=== PATIENT | male | born 1945 | race Caucasian/White ===

== ENCOUNTER 2017-05-06 20:15 | Observation (INO) | payer MEDICARE, OTHER ==
[2017-05-06] MEDS ORDERED: LORazepam 2 MG/ML MDV IVPUSH ONE (20:30)
[2017-05-06] MEDS ORDERED: Sodium Chloride 0.9% 1,000 ML IV ONE (20:30)
[2017-05-06] MEDS ORDERED: Thiamine 100 MG in Sodium Chloride 0.9% 100 ML IV ONE (20:30)
[2017-05-06] MEDS ORDERED: Folic Acid 1 MG Tab PO ONE (20:30)
--- NOTE | 2017-05-06 20:34 | EDM.PDOC ---
ED HPI GENERAL MEDICAL PROBLEM - General Chief Complaint: Drug or Alcohol Abuse Time Seen by Provider: 05/06/17 20:15 Source of Information: Reports: Patient, EMS History Limitations: Reports: Altered Mental Status - History of Present Illness INITIAL COMMENTS - FREE TEXT/NARRATIVE: 71 y.o.w.m., chronic ETOH abuse, stopped drinking on Friday night. He came to the ed by EMS because he was "shaking and not able to walk" pt is a poor historian and no family was present. No F/C BP 139/64 Pulse 93 temp 36.4 RR 16 Pulse ox 98% Labs: WBC 6.6 HGB 10.0 HCT 28.9 ETOH 0.03 Na 146 K 3.1 Onset Date: 05/05/17 Onset Time: 18:00 Duration: Day(s):, Intermittent Location: Reports: Generalized Quality: Reports: Other (shaking) Severity: Moderate Context: Reports: Other (last beek friday) - Related Data Allergies Allergy/AdvReac Type Severity Reaction Status Date / Time No Known Allergies Allergy Verified 05/06/17 20:28 Home Meds: Home Meds LORazepam [Ativan] 0.5 mg PO Q6H #40 tablet 05/08/17 [Rx] Multivitamins [Tab-A-Ean] 1 tab PO BEDTIME #30 tablet 05/08/17 [Rx] Thiamine [Vitamin B-1] 100 mg PO BEDTIME #30 tab 05/08/17 [Rx] ED ROS GENERAL - Review of Systems Review Of Systems: Unable To Obtain - Physical Exam Exam: See Below Exam Limited By: Altered Mental Status General Appearance: Alert, Anxious, Thin Eye Exam: Bilateral Eye: Normal Inspection Ears: Normal External Exam Nose: Normal Inspection Throat/Mouth: Normal Inspection, Other (poor dentition) Head Exam: Atraumatic, Normocephalic Neck: Normal Inspection, Supple, Non-Tender, Full Range of Motion Respiratory/Chest: No Respiratory Distress, Lungs Clear, Normal Breath Sounds Cardiovascular: Normal Peripheral Pulses, Regular Rate, Rhythm, No Edema GI/Abdominal: Normal Bowel Sounds, Soft, Non-Tender, No Organomegaly (Male) Exam: Deferred Rectal (Males) Exam: Deferred Neuro Exam (Abbreviated): Alert, CN II-XII Intact, Slow to Respond, Abnormal Gait (weak) Back Exam: Normal Inspection, Full Range of Motion Extremities: Normal Inspection, Normal Range of Motion, Non-Tender Psychiatric: Anxious Skin Exam: Warm, Dry, Intact, Normal Color, No Rash Course - Vital Signs Text/Narrative:: 71 y.o.w.m., chronic ETOH abuse, stopped drinking on Friday night. He came to the ed by EMS because he was "shaking and not able to walk" pt is a poor historian and no family was present. No F/C BP 139/64 Pulse 93 temp 36.4 RR 16 Pulse ox 98% PE: Thin/cachectic, weak w M with asterix tremor Labs: Na was 146 and K was 3.1 WBC 6.6 HGB 10.0 HCT 28.9 ETOH 0.03 Na 146 K 3.1 Cr. 1.4 Impression: ETOH withdrawl with tremor, Hypernatremia, hypokalemia, hypocalcemia Tx: NS, Thiamin, MVT, Folic acid, Ativan Reexam: Improved Plan: Admit for hypernatremia, dehydration and ETOH withdrawal Last Recorded V/S: Last Vital Signs Temp 36.8 C 05/08/17 00:00 Pulse 88 05/08/17 08:00 Resp 20 05/08/17 08:00 BP 161/88 H 05/08/17 08:00 Pulse Ox 97 05/08/17 08:00 - Orders/Labs/Meds Orders: Medication Orders Docusate Sodium (Colace) 100 mg PO BID PRN PRN Reason: Constipation Sodium Chloride (Normal Saline) 1,000 mls @ 125 mls/hr IV ASDIRECTED [facility] Last Admin: 05/08/17 06:49 Dose: 125 mls/hr Infusion: 05/08/17 06:45 Dose: 125 mls/hr Admin: 05/07/17 22:45 Dose: 125 mls/hr Infusion: 05/07/17 22:16 Dose: 125 mls/hr Admin: 05/07/17 14:16 Dose: 125 mls/hr Infusion: 05/07/17 14:05 Dose: 125 mls/hr Admin: 05/07/17 06:05 Dose: 125 mls/hr Infusion: 05/07/17 06:05 Dose: 125 mls/hr Admin: 05/06/17 22:36 Dose: 125 mls/hr Lorazepam (Ativan) 1 mg IV Q6H PRN PRN Reason: Agitation Multivitamins/Minerals/Vitamin C (Tab-A-Ean) 1 tab PO BEDTIME [facility] Last Admin: 05/07/17 20:31 Dose: 1 tab Admin: 05/06/17 20:57 Dose: 1 tab Ondansetron HCl (Zofran) 4 mg IV Q4H PRN PRN Reason: Nausea/Vomiting Potassium Chloride (Klor-Con M20) 20 meq PO BID [facility] Last Admin: 05/08/17 09:20 Dose: 20 meq Admin: 05/07/17 20:30 Dose: 20 meq Labs: Laboratory Tests 05/06/17 05/06/17 05/06/17 Range/Units 20:50 20:50 20:50 WBC 6.1 (4.5-12.0) X10-3/uL RBC 2.71 L (4.30-5.75) x10(6)uL Hgb 10.0 L (11.5-15.5) g/dL Hct 28.8 L (30.0-51.3) % MCV 106.1 H (80-96) fL MCH 36.9 H (27.7-33.6) pg MCHC 34.8 (32.2-35.4) g/dL RDW 16.3 H (11.5-15.5) % Plt Count 60 L (125-369) X10(3)uL MPV 10.6 H (7.4-10.4) fL Add Manual Diff Yes Neutrophils % (Manual) 60 (46-82) % Lymphocytes % (Manual) 31 (13-37) % Monocytes % (Manual) 9 (4-12) % Sodium 146 H (135-145) mmol/L Potassium 3.1 L (3.5-5.3) mmol/L Chloride 107 (100-110) mmol/L Carbon Dioxide 23 (21-32) mmol/L BUN 20 H (7-18) mg/dL Creatinine 1.4 H (0.70-1.30) mg/dL Est Cr Clr Drug Dosing TNP Estimated GFR (MDRD) 50 L (>60) BUN/Creatinine Ratio 14.3 (9-20) Glucose 123 H (80-116) mg/dL Calcium 8.3 L (8.6-10.2) mg/dL Ethyl Alcohol < 0.03 H (<0.03) % Meds: Medications Generic Name Dose Route Start Last Admin Trade Name Sera PRN Reason Stop Dose Admin Docusate Sodium 100 mg 05/06/17 21:37 Colace PO BID PRN Constipation Sodium Chloride 1,000 mls @ 125 mls/hr 05/06/17 21:45 05/08/17 06:49 Normal Saline IV 125 mls/hr ASDIRECTED LIN Administration Lorazepam 1 mg 05/06/17 21:37 Ativan IV Q6H PRN Agitation Multivitamins/Minerals/Vitamin C 1 tab 05/06/17 21:00 05/07/17 20:31 Tab-A-Ean PO 1 tab BEDTIME LIN Administration Ondansetron HCl 4 mg 05/06/17 21:37 Zofran IV Q4H PRN Nausea/Vomiting Potassium Chloride 20 meq 05/07/17 21:00 05/08/17 09:20 Klor-Con M20 PO 20 meq BID LIN Administration Discontinued Medications Generic Name Dose Route Start Last Admin Trade Name Sera PRN Reason Stop Dose Admin Folic Acid 1 mg 05/06/17 20:30 05/06/17 20:57 Folic Acid PO 05/06/17 20:31 1 mg ONETIME ONE Administration Sodium Chloride 1,000 mls @ 999 mls/hr 05/06/17 20:30 05/06/17 20:45 Normal Saline IV 05/06/17 21:30 999 mls/hr .BOLUS ONE Administration Thiamine HCl 100 mg/ Sodium 101 mls @ 202 mls/hr 05/06/17 20:30 05/06/17 20: 57 Chloride IV 05/06/17 20:31 202 mls/hr ONETIME ONE Administration Levofloxacin/Dextrose Confirm 05/06/17 21:11 05/06/17 21:21 Levaquin In D5w 750 Mg/150 Ml Administered 05/06/17 21:12 Not Given Dose 150 mls @ as directed IV .STK-MED ONE Lorazepam 1 mg 05/06/17 20:30 05/06/17 20:56 Ativan IVPUSH 05/06/17 20:31 1 mg ONETIME ONE Administration Departure - Departure Time of Disposition: 17:00 Disposition: Home, Self-Care 01 Condition: Fair Clinical Impression: ETOH abuse - Discharge Information
[2017-05-06] MEDS: Multivitamin Tab PO SCH (20:57)
[2017-05-06] MEDS ORDERED: Levofloxacin/Dextrose 5%-Water 150 ML IV ONE (21:11)
[2017-05-06] MEDS ORDERED: LORazepam 2 MG/ML MDV IV PRN (21:37)
[2017-05-06] MEDS ORDERED: Ondansetron 4 MG/2 ML SDV IV PRN (21:37)
[2017-05-06] MEDS ORDERED: Docusate Sodium 100 MG Cap PO PRN (21:37)
[2017-05-06] MEDS: Sodium Chloride 0.9% 1,000 ML IV SCH (22:36)
[2017-05-07] MEDS: Sodium Chloride 0.9% 1,000 ML IV SCH ×3 (06:05→22:45)
--- NOTE | 2017-05-07 12:32 | PCM.HP ---
H&P History of Present Illness - General Date of Service: 05/07/17 Source of Information: Patient History Limitations: Reports: Language Barrier - History of Present Illness Initial Comments - Free Text/Narative: This is a 71-year-old male patient came to the ER last night because he stopped drinking 2 days ago. He was tremulous and admitted for alcohol abuse and withdrawal. This morning the patient does not speak very loud and I'm not able to get the best history. He says he drinks during hockey games and football games. He states he doesn't drink every day. He's never been a treatment. I was not able to assess the cage question. He says been shaking but he has no other concerns. Says he moved down here in [place] from [facility]. ER record shows chronic alcohol abuse. - Related Data Allergies/Adverse Reactions: Allergies Allergy/AdvReac Type Severity Reaction Status Date / Time No Known Allergies Allergy Verified 05/06/17 20:28 Home Medications: Home Meds NK [No Known Home Meds] 05/06/17 [History] Past Medical History HEENT History: Reports: Impaired Vision, Other (See Below) Other HEENT History: glasses Gastrointestinal History: Reports: Jaundice, Other (See Below) Other Gastrointestinal History: pt denies, skin and sclera yellow Psychiatric History: Reports: Addiction Other Dermatologic History: jaundiced, numerous bruises and scrapes on arms legs and R upper mid back - Infectious Disease History Infectious Disease History: Reports: Chicken Pox, Measles, Mumps - Past Surgical History Musculoskeletal Surgical History: Reports: Shoulder Surgery Social & Family History - Family History Cardiac: Reports: Bypass Other Cardiac Family History: father Oncologic: Reports: Breast Other Oncologic Family History: mother and grandmother - Tobacco Use Smoking Status *Q: Never Smoker Second Hand Smoke Exposure: Yes - Caffeine Use Caffeine Use: Reports: Coffee Other Caffeine Use: 2 cups a day - Alcohol Use Days Per Week of Alcohol Use: 5 Number of Drinks Per Day: 3 Total Drinks Per Week: 15 Date of Last Drink: 05/04/17 Time of Last Drink: 18:00 - Recreational Drug Use Recreational Drug Use: No H&P Review of Systems - Review of Systems: Review Of Systems: See Below General: Reports: No Symptoms HEENT: Reports: No Symptoms Pulmonary: Reports: No Symptoms Cardiovascular: Reports: No Symptoms Gastrointestinal: Reports: No Symptoms Musculoskeletal: Reports: No Symptoms Skin: Reports: No Symptoms Psychiatric: Reports: No Symptoms Neurological: Reports: Trouble Speaking, Other (Tremors) Hematologic/Lymphatic: Reports: No Symptoms Immunologic: Reports: No Symptoms Exam - Exam Exam: See Below - Vital Signs Vital Signs: Last Vital Signs Temp 98.1 F 05/07/17 02:00 Pulse 79 05/07/17 11:17 Resp 18 05/07/17 11:17 BP 145/63 H 05/07/17 11:17 Pulse Ox 97 05/07/17 11:17 Weight: 138 lb - Exam General: Alert, Oriented, Cooperative, Lethargic HEENT: Hearing Intact, Mucosa Moist & [place], TMs Clear Neck: Supple, Trachea Midline. No: Lymphadenopathy Lungs: Clear to Auscultation, Normal Respiratory Effort Cardiovascular: Regular Rate, Regular Rhythm, Normal S1, Normal S2. No: Systolic Murmur, Diastolic Murmur GI/Abdominal Exam: Normal Bowel Sounds, Soft, Non-Tender, No Organomegaly, No Distention, No Mass Back Exam: Normal Inspection Extremities: Normal Range of Motion, Non-Tender, No Pedal Edema, Other (Tremors) Neurological: Normal Tone. No: Normal Speech Neuro Extensive - Mental Status: Alert, Oriented x3. No: Normal Cognition - Patient Data Lab Results Last 24 hrs: Laboratory Results - last 24 hr 05/07/17 05/07/17 Range/Units 00:05 00:05 Urine Color Yellow (YELLOW) Urine Appearance Clear (CLEAR) Urine pH 6.0 (5.0-6.5) Ur Specific [place] 1.015 (1.010-1.025) Urine Protein Negative (NEGATIVE) mg/dL Urine Glucose (UA) Normal (NEGATIVE) mg/dL Urine Ketones 15 H (NEGATIVE) mg/dL Urine Occult Blood Moderate H (NEGATIVE) Urine Nitrite Negative (NEGATIVE) Urine Bilirubin Moderate H (NEGATIVE) Urine Urobilinogen >=12 H (NEGATIVE) mg/dL Ur Leukocyte Esterase Negative (NEGATIVE) Urine RBC 5-10 (0) Urine WBC 0-5 (0) Ur Squamous Epith Cells Few H (NS,R,O) Urine Bacteria Few H (NS) Urine Mucus Few H (NS) Urine Opiates Screen Negative (NEGATIVE) Ur Oxycodone Screen Negative (NEGATIVE) Ur Propoxyphene Screen Negative (NEGATIVE) Ur Barbituates Screen Negative (NEGATIVE) Ur Tricyclics Screen Negative (NEGATIVE) Ur Phencyclidine Scrn Negative (NEGATIVE) Ur Amphetamine Screen Negative (NEGATIVE) Urine MDMA Screen Negative (NEGATIVE) U Benzodiazepines Scrn Negative (NEGATIVE) U Cocaine Metab Screen Negative (NEGATIVE) U Marijuana (THC) Screen Negative (NEGATIVE) Result Diagrams: 05/06/17 20:50 05/06/17 20:50 *Q Meaningful Use (ADM) - VTE *Q VTE Criteria *Q: - Stroke *Q Stroke Criteria *Q: - AMI *Q AMI Criteria *Q: - Problem List (1) Alcohol withdrawal SNOMED Code(s): 180403803 ICD Code: F10.239 - ALCOHOL DEPENDENCE WITH WITHDRAWAL, UNSPECIFIED Status : Acute Current Visit: Yes (2) Alcohol abuse SNOMED Code(s): 36022558 ICD Code: F10.10 - ALCOHOL ABUSE, UNCOMPLICATED Status: Acute Current Visit: Yes Problem List Initiated/Reviewed/Updated: Yes Orders Last 24hrs: Active Orders 24 hr Category Date Time Status CIWAA Assessment [RC] Q4H Care 05/07/17 10:20 Active Regular Diet [DIET] Diet 05/07/17 Dinner Ordered Medication Orders Docusate Sodium (Colace) 100 mg PO BID PRN PRN Reason: Constipation Sodium Chloride (Normal Saline) 1,000 mls @ 125 mls/hr IV ASDIRECTED [facility] Last Admin: 05/07/17 06:05 Dose: 125 mls/hr Infusion: 05/07/17 06:05 Dose: 125 mls/hr Admin: 05/06/17 22:36 Dose: 125 mls/hr Lorazepam (Ativan) 1 mg IV Q6H PRN PRN Reason: Agitation Multivitamins/Minerals/Vitamin C (Tab-A-Ean) 1 tab PO BEDTIME [facility] Last Admin: 05/06/17 20:57 Dose: 1 tab Ondansetron HCl (Zofran) 4 mg IV Q4H PRN PRN Reason: Nausea/Vomiting Assessment/Plan Comment:: 1. Admit to ICU for alcohol withdrawal protocol. 2. Regular diet. 3. Up ad tati. 4. We'll continue to watch for other things because he such a poor historian. 5. He doesn't take any medications. 6. When he is more alert try to get a better history.
[2017-05-07] MEDS: Potassium Chloride 20 MEQ Tab.ER PO SCH (20:30)
[2017-05-07] MEDS: Multivitamin Tab PO SCH (20:31)
[2017-05-08] MEDS: Sodium Chloride 0.9% 1,000 ML IV SCH (06:49)
--- NOTE | 2017-05-08 08:50 | PCM.PN ---
- General Info Date of Service: 05/08/17 Admission Dx/Problem (Free Text): Patient states he feels much better. Cells little shaking. Nurses report that his only symptom of withdrawal now is a shaking. Blood pressure and pulse are much better. He still only states he drinks to hockey games or football games. He states he needs to get home because he has 9 cats and his fiance now has left him. - Patient Data Vitals - Most Recent: Last Vital Signs Temp 98.2 F 05/08/17 00:00 Pulse 88 05/08/17 08:00 Resp 20 05/08/17 08:00 BP 161/88 H 05/08/17 08:00 Pulse Ox 97 05/08/17 08:00 Weight - Most Recent: 138 lb I&O - Last 24 Hours: Intake & Output 05/07/17 05/08/17 05/08/17 22:59 06:59 14:59 Intake Total 1252 1256 Output Total 125 875 Balance 1127 381 Lab Results Last 24 Hours: Laboratory Results - last 24 hr 05/08/17 05/08/17 Range/Units 06:25 06:25 WBC 6.1 (4.5-12.0) X10-3/uL RBC 2.39 L (4.30-5.75) x10(6)uL Hgb 8.7 L (11.5-15.5) g/dL Hct 25.4 L (30.0-51.3) % MCV 106.4 H (80-96) fL MCH 36.4 H (27.7-33.6) pg MCHC 34.3 (32.2-35.4) g/dL RDW 15.8 H (11.5-15.5) % Plt Count 50 L (125-369) X10(3)uL MPV 10.0 (7.4-10.4) fL Add Manual Diff Yes Neutrophils % (Manual) 48 (46-82) % Band Neutrophils % 2 (0-6) % Lymphocytes % (Manual) 40 H (13-37) % Monocytes % (Manual) 6 (4-12) % Eosinophils % (Manual) 4 (0-5) % Macrocytosis Few Sodium 144 (135-145) mmol/L Potassium 3.1 L (3.5-5.3) mmol/L Chloride 113 H D (100-110) mmol/L Carbon Dioxide 22 (21-32) mmol/L BUN 14 (7-18) mg/dL Creatinine 1.0 (0.70-1.30) mg/dL Est Cr Clr Drug Dosing 61.73 mL/min Estimated GFR (MDRD) > 60 (>60) BUN/Creatinine Ratio 14.0 (9-20) Glucose 106 (80-116) mg/dL Calcium 7.4 L (8.6-10.2) mg/dL Total Bilirubin 4.9 H (0.1-1.3) mg/dL AST 168 H* (5-25) IU/L ALT 29 (12-36) U/L Alkaline Phosphatase 107 (56-112) IU/L Total Protein 6.6 (6.0-8.0) g/dL Albumin 1.8 L (3.2-4.6) g/dL Globulin 4.8 g/dL Albumin/Globulin Ratio 0.4 Med Orders - Current: Current Medications Docusate Sodium (Colace) 100 mg PO BID PRN PRN Reason: Constipation Sodium Chloride (Normal Saline) 1,000 mls @ 125 mls/hr IV ASDIRECTED [facility] Last Admin: 05/08/17 06:49 Dose: 125 mls/hr Lorazepam (Ativan) 1 mg IV Q6H PRN PRN Reason: Agitation Multivitamins/Minerals/Vitamin C (Tab-A-Ean) 1 tab PO BEDTIME [facility] Last Admin: 05/07/17 20:31 Dose: 1 tab Ondansetron HCl (Zofran) 4 mg IV Q4H PRN PRN Reason: Nausea/Vomiting Potassium Chloride (Klor-Con M20) 20 meq PO BID [facility] Last Admin: 05/07/17 20:30 Dose: 20 meq Discontinued Medications Folic Acid (Folic Acid) 1 mg PO ONETIME ONE Stop: 05/06/17 20:31 Last Admin: 05/06/17 20:57 Dose: 1 mg Sodium Chloride (Normal Saline) 1,000 mls @ 999 mls/hr IV .BOLUS ONE Stop: 05/06/17 21:30 Last Admin: 05/06/17 20:45 Dose: 999 mls/hr Thiamine HCl 100 mg/ Sodium (Chloride) 101 mls @ 202 mls/hr IV ONETIME ONE Stop: 05/06/17 20:31 Last Admin: 05/06/17 20:57 Dose: 202 mls/hr Levofloxacin/Dextrose (Levaquin In D5w 750 Mg/150 Ml) Confirm Administered Dose 150 mls @ as directed IV .STK-MED ONE Stop: 05/06/17 21:12 Last Admin: 05/06/17 21:21 Dose: Not Given Lorazepam (Ativan) 1 mg IVPUSH ONETIME ONE Stop: 05/06/17 20:31 Last Admin: 05/06/17 20:56 Dose: 1 mg - Exam General: Alert, Oriented, Cooperative Neck: Supple Lungs: Clear to Auscultation, Normal Respiratory Effort Cardiovascular: Regular Rate, Regular Rhythm, No Murmurs Extremities: Other (Mild tremors) - Problem List & Annotations (1) Alcohol withdrawal SNOMED Code(s): 771227908 Code(s): F10.239 - ALCOHOL DEPENDENCE WITH WITHDRAWAL, UNSPECIFIED Status: Acute Current Visit: Yes (2) Alcohol abuse SNOMED Code(s): 69833906 Code(s): F10.10 - ALCOHOL ABUSE, UNCOMPLICATED Status: Acute Current Visit: Yes (3) Thrombocytopenia SNOMED Code(s): 904607235 Code(s): D69.6 - THROMBOCYTOPENIA, UNSPECIFIED Status: Acute Current Visit: Yes (4) Anemia SNOMED Code(s): 496997365 Code(s): D64.9 - ANEMIA, UNSPECIFIED Status: Acute Current Visit: Yes - Problem List Review Problem List Initiated/Reviewed/Updated: Yes - My Orders Last 24 Hours: My Active Orders 05/07/17 10:20 CIWAA Assessment [RC] Q4H 05/07/17 21:00 Potassium Chloride [Klor-Con M20] 20 meq PO BID 05/07/17 Dinner Regular Diet [DIET] - Plan Plan:: 1. I told the patient because of his platelets he should stay another day. He states he needs to get home because of his cats and they will *. In lieu of this I will discharge him today. He states he [facility] with the [facility]. He does not have a physician or provider over there. He needs a follow- up in 4 days with his lab work including his platelets. Also talked to him about alcohol counseling. And I will [facility] a visit [facility]. I stressed to him how his alcohol is affecting his physical body.
--- NOTE | 2017-05-08 08:59 | PCM.DCSUM1 ---
Discharge Summary - Hospital Course Free Text/Narrative:: Hospital course-patient was admitted to the ICU for alcohol withdrawal. He was given Ativan and observed. Initially he was not very comprehendible but later he was able to speak. He states he moved here from [facility]. He states he only uses alcohol when he watches a hockey game or football game on TV. Denied been in treatment in the past. He says he said withdrawals before. He did well here and is able to eat and drink. His blood pressure and pulse came down. Shakes continue. His hemoglobin dropped to 8.6 and platelets were 60 went to 50. Patient states his fiance left him and he needs to get out of here because he has 9 They Need to Be Fed or They Will . I Told Him I Prefer to Keep Him Another Day but He Persists on Going Home. I Talked to Him about Alcohol Treatment and Is Willing [facility]. Talk to Him about the Effects of Alcohol on His Body Including His Liver and Bone. He States He Wants to Be Seen at [facility]. He Does Not Have a Provider. I'll Have Him Follow-Up in 4-5 Days with a CBC and Chem-12. Set up to See [facility]. Sent Home Ativan 0.5 Every 6 Hours When Necessary. I Also Discussed the Risks of Seizures. He Says He Is Never Sees in the past. Brief History: This is a 71-year-old male patient came to the ER last night because he stopped drinking 2 days ago. He was tremulous and admitted for alcohol abuse and withdrawal. This morning the patient does not speak very loud and I'm not able to get the best history. He says he drinks during hockey games and football games. He states he doesn't drink every day. He's never been a treatment. I was not able to assess the cage question. He says been shaking but he has no other concerns. Says he moved down here in [place] from [facility]. ER record shows chronic alcohol abuse. - Discharge Data Discharge Date: 05/08/17 Discharge Disposition: Home, Self-Care 01 Condition: Good - Discharge Diagnosis/Problem(s) (1) Alcohol withdrawal SNOMED Code(s): 718402155 ICD Code: F10.239 - ALCOHOL DEPENDENCE WITH WITHDRAWAL, UNSPECIFIED Status : Acute Current Visit: Yes (2) Alcohol abuse SNOMED Code(s): 25264950 ICD Code: F10.10 - ALCOHOL ABUSE, UNCOMPLICATED Status: Acute Current Visit: Yes (3) Thrombocytopenia SNOMED Code(s): 487225621 ICD Code: D69.6 - THROMBOCYTOPENIA, UNSPECIFIED Status: Acute Current Visit: Yes (4) Anemia SNOMED Code(s): 180841005 ICD Code: D64.9 - ANEMIA, UNSPECIFIED Status: Acute Current Visit: Yes - Patient Instructions Diet: Regular Diet as Tolerated Activity: As Tolerated Driving: May Drive Today Showering/Bathing: May Shower Notify Provider of: Fever, Increased Pain Other/Special Instructions: 1. Recheck with [facility] in 4-5 days with a CBC, Chem-12. He does not have a provider there. But that's where he chooses to go. 2. Set him up to see [facility]. - Discharge Plan Prescriptions/Med Rec: LORazepam [Ativan] 0.5 mg PO Q6H #40 tablet Multivitamins [Tab-A-Ean] 1 tab PO BEDTIME #30 tablet Thiamine [Vitamin B-1] 100 mg PO BEDTIME #30 tab Home Medications: Home Meds LORazepam [Ativan] 0.5 mg PO Q6H #40 tablet 05/08/17 [Rx] Multivitamins [Tab-A-Ean] 1 tab PO BEDTIME #30 tablet 05/08/17 [Rx] Thiamine [Vitamin B-1] 100 mg PO BEDTIME #30 tab 05/08/17 [Rx] Forms: ED Department Discharge Referrals: PCP,None [Primary Care Provider] - - Discharge Summary/Plan Comment DC Time >30 min.: No - Patient Data Vitals - Most Recent: Last Vital Signs Temp 98.2 F 05/08/17 00:00 Pulse 88 05/08/17 08:00 Resp 20 05/08/17 08:00 BP 161/88 H 05/08/17 08:00 Pulse Ox 97 05/08/17 08:00 Weight - Most Recent: 138 lb I&O - Last 24 hours: Intake & Output 05/07/17 05/08/17 05/08/17 22:59 06:59 14:59 Intake Total 1252 1256 Output Total 125 875 Balance 1127 381 Lab Results - Last 24 hrs: Laboratory Results - last 24 hr 05/08/17 05/08/17 Range/Units 06:25 06:25 WBC 6.1 (4.5-12.0) X10-3/uL RBC 2.39 L (4.30-5.75) x10(6)uL Hgb 8.7 L (11.5-15.5) g/dL Hct 25.4 L (30.0-51.3) % MCV 106.4 H (80-96) fL MCH 36.4 H (27.7-33.6) pg MCHC 34.3 (32.2-35.4) g/dL RDW 15.8 H (11.5-15.5) % Plt Count 50 L (125-369) X10(3)uL MPV 10.0 (7.4-10.4) fL Add Manual Diff Yes Neutrophils % (Manual) 48 (46-82) % Band Neutrophils % 2 (0-6) % Lymphocytes % (Manual) 40 H (13-37) % Monocytes % (Manual) 6 (4-12) % Eosinophils % (Manual) 4 (0-5) % Macrocytosis Few Sodium 144 (135-145) mmol/L Potassium 3.1 L (3.5-5.3) mmol/L Chloride 113 H D (100-110) mmol/L Carbon Dioxide 22 (21-32) mmol/L BUN 14 (7-18) mg/dL Creatinine 1.0 (0.70-1.30) mg/dL Est Cr Clr Drug Dosing 61.73 mL/min Estimated GFR (MDRD) > 60 (>60) BUN/Creatinine Ratio 14.0 (9-20) Glucose 106 (80-116) mg/dL Calcium 7.4 L (8.6-10.2) mg/dL Total Bilirubin 4.9 H (0.1-1.3) mg/dL AST 168 H* (5-25) IU/L ALT 29 (12-36) U/L Alkaline Phosphatase 107 (56-112) IU/L Total Protein 6.6 (6.0-8.0) g/dL Albumin 1.8 L (3.2-4.6) g/dL Globulin 4.8 g/dL Albumin/Globulin Ratio 0.4 Med Orders - Current: Current Medications Docusate Sodium (Colace) 100 mg PO BID PRN PRN Reason: Constipation Sodium Chloride (Normal Saline) 1,000 mls @ 125 mls/hr IV ASDIRECTED [facility] Last Admin: 05/08/17 06:49 Dose: 125 mls/hr Lorazepam (Ativan) 1 mg IV Q6H PRN PRN Reason: Agitation Multivitamins/Minerals/Vitamin C (Tab-A-Ean) 1 tab PO BEDTIME [facility] Last Admin: 05/07/17 20:31 Dose: 1 tab Ondansetron HCl (Zofran) 4 mg IV Q4H PRN PRN Reason: Nausea/Vomiting Potassium Chloride (Klor-Con M20) 20 meq PO BID [facility] Last Admin: 05/07/17 20:30 Dose: 20 meq Discontinued Medications Folic Acid (Folic Acid) 1 mg PO ONETIME ONE Stop: 05/06/17 20:31 Last Admin: 05/06/17 20:57 Dose: 1 mg Sodium Chloride (Normal Saline) 1,000 mls @ 999 mls/hr IV .BOLUS ONE Stop: 05/06/17 21:30 Last Admin: 05/06/17 20:45 Dose: 999 mls/hr Thiamine HCl 100 mg/ Sodium (Chloride) 101 mls @ 202 mls/hr IV ONETIME ONE Stop: 05/06/17 20:31 Last Admin: 05/06/17 20:57 Dose: 202 mls/hr Levofloxacin/Dextrose (Levaquin In D5w 750 Mg/150 Ml) Confirm Administered Dose 150 mls @ as directed IV .STK-MED ONE Stop: 05/06/17 21:12 Last Admin: 05/06/17 21:21 Dose: Not Given Lorazepam (Ativan) 1 mg IVPUSH ONETIME ONE Stop: 05/06/17 20:31 Last Admin: 05/06/17 20:56 Dose: 1 mg *Q Meaningful Use (DIS) - VTE *Q VTE Criteria *Q: - Stroke *Q Stroke Criteria *Q: - AMI *Q AMI Criteria *Q:
[2017-05-08] MEDS: Potassium Chloride 20 MEQ Tab.ER PO SCH (09:20)
== END 2017-05-08 10:25 | disposition home or self-care (01) ==
LOC: FB.ED 20:15 → EDBD 20:15 → FB.ICU 21:44
PROVIDERS: ADMIT Emergency Medicine; ATTEND Family Medicine
DX: F10.239 Alcohol dependence with withdrawal, unspecified (principal); D69.6 Thrombocytopenia, unspecified; D64.9 Anemia, unspecified; Z79.899 Other long term (current) drug therapy; Z98.890 Other specified postprocedural states
CPT/HCPCS: 36415; 80048; 80053; 80305; 81001; 85025; 96361; 96365; 96375; 99285; A9270; G0378; G0480; J2060; J3411; J7030; J7040; 99217; 99219

== ENCOUNTER 2017-12-12 09:56 | Emergency (ER) | payer MEDICARE, SELFPAY ==
--- NOTE | 2017-12-12 10:04 | EDM.PDOC ---
ED HPI GENERAL MEDICAL PROBLEM - General Stated Complaint: WITH DRAWEL Time Seen by Provider: 12/12/17 09:50 Source of Information: Reports: Patient, EMS History Limitations: Reports: Altered Mental Status, Physical Impairment - History of Present Illness INITIAL COMMENTS - FREE TEXT/NARRATIVE: 72 y.o.w.m with H/O chronic ETOH abuse, came by EMS to the ED after he was found under his bed this am. His girlfriend managed it to bring onto his bed before the EMS arrived. On arrival toe the ED. pt was shivering, jaundice. His BP was 121/76 Pulse 91 Temp 36.8 Pt was OX3, no ETOH Oder. Pt was unkempt and ia a poor historian, no Family was present. Onset Date: 12/11/17 Onset Time: 20:00 Duration: Hour(s):, Getting Worse, Intermittent Location: Reports: Generalized Severity: Moderate Context: Reports: Other (chronic ETOH abuse. ) - Related Data Allergies Allergy/AdvReac Type Severity Reaction Status Date / Time No Known Allergies Allergy Verified 12/12/17 10:11 Home Meds: Home Meds LORazepam [Ativan] 0.5 mg PO Q6H #40 tablet 05/08/17 [Rx] Multivitamins [Tab-A-Ean] 1 tab PO BEDTIME #30 tablet 05/08/17 [Rx] Thiamine [Vitamin B-1] 100 mg PO BEDTIME #30 tab 05/08/17 [Rx] Past Medical History HEENT History: Reports: Impaired Vision, Other (See Below) Other HEENT History: glasses Gastrointestinal History: Reports: Jaundice, Other (See Below) Other Gastrointestinal History: pt denies, skin and sclera yellow Psychiatric History: Reports: Addiction Other Dermatologic History: jaundiced, numerous bruises and scrapes on arms legs and R upper mid back - Infectious Disease History Infectious Disease History: Reports: Chicken Pox, Measles, Mumps - Past Surgical History Musculoskeletal Surgical History: Reports: Shoulder Surgery Social & Family History - Family History Cardiac: Reports: Bypass Other Cardiac Family History: father Oncologic: Reports: Breast Other Oncologic Family History: mother and grandmother - Caffeine Use Caffeine Use: Reports: Coffee Other Caffeine Use: 2 cups a day ED ROS GENERAL - Review of Systems Review Of Systems: Unable To Obtain - Physical Exam Exam: See Below Exam Limited By: Physical Impairment General Appearance: Alert, Moderate Distress, Cachetic Eye Exam: Bilateral Eye: Normal Inspection Ears: Normal External Exam Nose: Normal Inspection Throat/Mouth: Normal Lips, Normal Voice, No Airway Compromise, Other (poor dentition, dry mucosal mmebrane) Head Exam: Atraumatic, Normocephalic Neck: Normal Inspection, Supple, Non-Tender Respiratory/Chest: No Respiratory Distress, Lungs Clear (poor insp effort), Normal Breath Sounds Cardiovascular: Regular Rate, Rhythm, No JVD GI/Abdominal: Normal Bowel Sounds, Distended (ascites ) (Male) Exam: No Hernia Rectal (Males) Exam: Normal Rectal Tone, Heme - Stool (brown stool) Neuro Exam (Abbreviated): Alert, Oriented, Abnormal Gait (unable to ambulate) Back Exam: Normal Inspection, Full Range of Motion Extremities: Normal Range of Motion, Non-Tender Psychiatric: Normal Affect, Normal Mood, Anxious Skin Exam: Intact, No Rash, Cool, Jaundice, Other (poor hygiene) EKG INTERPRETATION EKG Date: 12/12/17 Time: 10:10 Rhythm: NSR Rate (Beats/Min): 92 Donaldson: Normal P-Wave: Present QRS: Normal ST-T: Normal QT: Normal Comparison: NA - No Prior EKG Course - Vital Signs Text/Narrative:: 72 y.o.w.m with H/O chronic ETOH abuse, came by EMS to the ED after he was found under his bed this am. His girlfriend managed it to bring onto his bed before the EMS arrived. On arrival toe the ED. pt was shivering, jaundice. His BP was 121/76 Pulse 91 Temp 36.8 Pt was OX3, no ETOH Oder. Pt was unkempt and ia a poor historian, no Family was present. PE: Cachectic, pale, H/O ETOH abuse, ascites, Brown stool, no coffee ground material in mouth/pharynx Labs: Quiac stool Neg. (brown stool) HGB 7.2 HCT 21.4 PLTs 25K INR 1.96 GFR 43 BUN 22 Cr 1.6, Na 147 K 3.6 Lactic acid 10.8 Glc 108 BNP 3798 AST 157 ETOH 0.03 Alb 2.2 Imaging: CXR: NAD Impression: Macrocytic Anemia, Hypotension, H/O ETOH abuse. Elevated Liver enzymes with ascites , Septic picture, Low platelets UTI with Hematuria. Tx: NS, Zosyn, Vanco, Protronix.Thiamin PRBC to ransfuse was ordered. 11.00 am Consultation: Dr. Brunson, Hospitalist: Admit to ICU 11.05: No nursing staff available to care for ICU patients. 11.10 am consultation: [facility] Pt accept for transfer and further care Reexam: Pt's BP dropped to 67/56 temporarily but removed in 4 min to 110.56 ( positioning) Pt was improving, BP 130/67, was hallucinating, however at time of transfere. Plan: Transfer to [facility] Last Recorded V/S: Last Vital Signs Temp 36.5 C 12/12/17 13:14 Pulse 95 12/12/17 13:14 Resp 18 12/12/17 13:14 BP 115/55 L 12/12/17 13:14 Pulse Ox 91 L 12/12/17 12:03 - Orders/Labs/Meds Orders: Active Orders 24 hr Category Date Time Status CXR [Chest 1V Frontal] [CR] Stat Exams 12/12/17 10:59 Taken AMMONIA, PLASMA Stat Lab 12/12/17 11:35 Received CULTURE BLOOD [BC] Urgent Lab 12/12/17 11:20 Received CULTURE BLOOD [BC] Urgent Lab 12/12/17 11:25 Received PATIENT RETYPE [BBK] Stat Lab 12/12/17 10:15 Results RED BLOOD CELLS LP [BBK] Stat Lab 12/12/17 10:15 Results TYPE AND SCREEN [BBK] Stat Lab 12/12/17 10:15 Results UA W/MICROSCOPIC [URIN] Stat Lab 12/12/17 10:29 Ordered Piperacillin/Tazobactam [Zosyn] 3.375 gm Med 12/12/17 11:00 Active Sodium Chloride 0.9% [Normal Saline] 50 ml IV Q6H Sodium Chloride 0.9% [Normal Saline] 1,000 ml Med 12/12/17 12:45 Active IV ASDIRECTED Sodium Chloride 0.9% [Normal Saline] 1,000 ml Med 12/12/17 13:00 Active IV ASDIRECTED Sodium Chloride 0.9% [Normal Saline] 250 ml Med 12/12/17 10:45 Active IV ASDIRECTED Blood Culture x2 Reflex Set [OM.PC] Urgent Oth 12/12/17 10:54 Ordered Transfuse Platelets [COMM] Stat Oth 12/12/17 10:39 Ordered Transfuse Red Blood Cells [COMM] Stat Oth 12/12/17 10:39 Ordered Medication Orders Sodium Chloride (Normal Saline) 250 mls @ 100 mls/hr IV ASDIRECTED [facility] Piperacillin Sod/Tazobactam (Sod 3.375 gm/ Sodium Chloride) 50 mls @ 100 mls/ hr IV Q6H LIN Last Admin: 12/12/17 11:24 Dose: 100 mls/hr Sodium Chloride (Normal Saline) 1,000 mls @ 75 mls/hr IV ASDIRECTED LIN Sodium Chloride (Normal Saline) 1,000 mls @ 150 mls/hr IV ASDIRECTED [facility] Labs: Laboratory Tests 12/12/17 12/12/17 12/12/17 Range/Units 10:15 10:15 10:15 WBC 6.1 (4.5-12.0) X10-3/uL RBC 2.01 L (4.30-5.75) x10(6)uL Hgb 7.2 L (11.5-15.5) g/dL Hct 21.9 L* (30.0-51.3) % MCV 108.8 H (80-96) fL MCH 35.7 H (27.7-33.6) pg MCHC 32.8 (32.2-35.4) g/dL RDW 17.0 H (11.5-15.5) % Plt Count 27 L* (125-369) X10(3)uL MPV 10.9 H (7.4-10.4) fL Add Manual Diff Yes Neutrophils % (Manual) 76 (46-82) % Lymphocytes % (Manual) 16 (13-37) % Monocytes % (Manual) 8 (4-12) % Plt Morphology Comment See note Anisocytosis Few Macrocytosis Moderate H PT 18.9 H (8.7-11.1) INR 1.96 H (0.89-1.13) Sodium 146 H (135-145) mmol/L Potassium 3.7 (3.5-5.3) mmol/L Chloride 108 D (100-110) mmol/L Carbon Dioxide 16 L (21-32) mmol/L BUN 22 H (7-18) mg/dL Creatinine 1.6 H (0.70-1.30) mg/dL Est Cr Clr Drug Dosing 39.41 mL/min Estimated GFR (MDRD) 43 L (>60) BUN/Creatinine Ratio 13.8 (9-20) Glucose 107 (80-116) mg/dL Lactic Acid (0.4-2.2) mmol/L Calcium 8.1 L (8.6-10.2) mg/dL Total Bilirubin 6.2 H (0.1-1.3) mg/dL Direct Bilirubin 3.92 H (0.10-0.20) mg/dL AST 176 H* (5-25) IU/L ALT 30 (12-36) U/L Alkaline Phosphatase 86 (56-112) IU/L NT-Pro-B Natriuret Pep (<=125) pg/mL Total Protein 6.9 (6.0-8.0) g/dL Albumin 2.2 L (3.2-4.6) g/dL Urine Color (YELLOW) Urine Appearance (CLEAR) Urine pH (5.0-6.5) Ur Specific Reading (1.010-1.025) Urine Protein (NEGATIVE) mg/dL Urine Glucose (UA) (NEGATIVE) mg/dL Urine Ketones (NEGATIVE) mg/dL Urine Occult Blood (NEGATIVE) Urine Nitrite (NEGATIVE) Urine Bilirubin (NEGATIVE) Urine Urobilinogen (NEGATIVE) mg/dL Ur Leukocyte Esterase (NEGATIVE) Urine RBC (0) Urine WBC (0) Ur Squamous Epith Cells (NS,R,O) Ur Renal Epithelial Cell (NS) Urine Bacteria (NS) Ethyl Alcohol (<0.03) % Blood Type Gel Antibody Screen Crossmatch 12/12/17 12/12/17 12/12/17 Range/Units 10:15 10:15 10:15 WBC (4.5-12.0) X10-3/uL RBC (4.30-5.75) x10(6)uL Hgb (11.5-15.5) g/dL Hct (30.0-51.3) % MCV (80-96) fL MCH (27.7-33.6) pg MCHC (32.2-35.4) g/dL RDW (11.5-15.5) % Plt Count (125-369) X10(3)uL MPV (7.4-10.4) fL Add Manual Diff Neutrophils % (Manual) (46-82) % Lymphocytes % (Manual) (13-37) % Monocytes % (Manual) (4-12) % Plt Morphology Comment Anisocytosis Macrocytosis PT (8.7-11.1) INR (0.89-1.13) Sodium (135-145) mmol/L Potassium (3.5-5.3) mmol/L Chloride (100-110) mmol/L Carbon Dioxide (21-32) mmol/L BUN (7-18) mg/dL Creatinine (0.70-1.30) mg/dL Est Cr Clr Drug Dosing mL/min Estimated GFR (MDRD) (>60) BUN/Creatinine Ratio (9-20) Glucose (80-116) mg/dL Lactic Acid 10.8 H* (0.4-2.2) mmol/L Calcium (8.6-10.2) mg/dL Total Bilirubin (0.1-1.3) mg/dL Direct Bilirubin (0.10-0.20) mg/dL AST (5-25) IU/L ALT (12-36) U/L Alkaline Phosphatase (56-112) IU/L NT-Pro-B Natriuret Pep (<=125) pg/mL Total Protein (6.0-8.0) g/dL Albumin (3.2-4.6) g/dL Urine Color (YELLOW) Urine Appearance (CLEAR) Urine pH (5.0-6.5) Ur Specific Reading (1.010-1.025) Urine Protein (NEGATIVE) mg/dL Urine Glucose (UA) (NEGATIVE) mg/dL Urine Ketones (NEGATIVE) mg/dL Urine Occult Blood (NEGATIVE) Urine Nitrite (NEGATIVE) Urine Bilirubin (NEGATIVE) Urine Urobilinogen (NEGATIVE) mg/dL Ur Leukocyte Esterase (NEGATIVE) Urine RBC (0) Urine WBC (0) Ur Squamous Epith Cells (NS,R,O) Ur Renal Epithelial Cell (NS) Urine Bacteria (NS) Ethyl Alcohol < 0.03 (<0.03) % Blood Type O POSITIVE Gel Antibody Screen Negative Crossmatch See Detail 12/12/17 12/12/17 Range/Units 10:15 10:29 WBC (4.5-12.0) X10-3/uL RBC (4.30-5.75) x10(6)uL Hgb (11.5-15.5) g/dL Hct (30.0-51.3) % MCV (80-96) fL MCH (27.7-33.6) pg MCHC (32.2-35.4) g/dL RDW (11.5-15.5) % Plt Count (125-369) X10(3)uL MPV (7.4-10.4) fL Add Manual Diff Neutrophils % (Manual) (46-82) % Lymphocytes % (Manual) (13-37) % Monocytes % (Manual) (4-12) % Plt Morphology Comment Anisocytosis Macrocytosis PT (8.7-11.1) INR (0.89-1.13) Sodium (135-145) mmol/L Potassium (3.5-5.3) mmol/L Chloride (100-110) mmol/L Carbon Dioxide (21-32) mmol/L BUN (7-18) mg/dL Creatinine (0.70-1.30) mg/dL Est Cr Clr Drug Dosing mL/min Estimated GFR (MDRD) (>60) BUN/Creatinine Ratio (9-20) Glucose (80-116) mg/dL Lactic Acid (0.4-2.2) mmol/L Calcium (8.6-10.2) mg/dL Total Bilirubin (0.1-1.3) mg/dL Direct Bilirubin (0.10-0.20) mg/dL AST (5-25) IU/L ALT (12-36) U/L Alkaline Phosphatase (56-112) IU/L NT-Pro-B Natriuret Pep 3720 H* (<=125) pg/mL Total Protein (6.0-8.0) g/dL Albumin (3.2-4.6) g/dL Urine Color [place] (YELLOW) Urine Appearance Slightly cloudy (CLEAR) Urine pH 6.0 (5.0-6.5) Ur Specific Reading 1.010 (1.010-1.025) Urine Protein Negative (NEGATIVE) mg/dL Urine Glucose (UA) Normal (NEGATIVE) mg/dL Urine Ketones 15 H (NEGATIVE) mg/dL Urine Occult Blood Large H (NEGATIVE) Urine Nitrite Negative (NEGATIVE) Urine Bilirubin Moderate H (NEGATIVE) Urine Urobilinogen >=12 H (NEGATIVE) mg/dL Ur Leukocyte Esterase Small H (NEGATIVE) Urine RBC 10-20 H (0) Urine WBC 10-20 H (0) Ur Squamous Epith Cells Few H (NS,R,O) Ur Renal Epithelial Cell Moderate H (NS) Urine Bacteria Few H (NS) Ethyl Alcohol (<0.03) % Blood Type Gel Antibody Screen Crossmatch Meds: Medications Generic Name Dose Route Start Last Admin Trade Name Freq PRN Reason Stop Dose Admin Sodium Chloride 250 mls @ 100 mls/hr 12/12/17 10:45 Normal Saline IV ASDIRECTED LIN Piperacillin Sod/Tazobactam 50 mls @ 100 mls/hr 12/12/17 11:00 12/12/17 11:24 Sod 3.375 gm/ Sodium Chloride IV 100 mls/hr Q6H LIN Administration Sodium Chloride 1,000 mls @ 75 mls/hr 12/12/17 12:45 Normal Saline IV ASDIRECTED LIN Sodium Chloride 1,000 mls @ 150 mls/hr 12/12/17 13:00 Normal Saline IV ASDIRECTED LIN Discontinued Medications Generic Name Dose Route Start Last Admin Trade Name Freq PRN Reason Stop Dose Admin Sodium Chloride 1,000 mls @ 999 mls/hr 12/12/17 10:56 12/12/17 11:00 Normal Saline IV 12/12/17 11:56 999 mls/hr .BOLUS ONE Administration Vancomycin HCl 1,000 mg/ 250 mls @ 167 mls/hr 12/12/17 11:39 12/12/17 11:43 Sodium Chloride IV 12/12/17 12:59 167 mls/hr ONETIME ONE Administration Thiamine HCl 100 mg/ Sodium 101 mls @ 202 mls/hr 12/12/17 12:56 Chloride IV 12/12/17 12:57 ONETIME ONE Pantoprazole Sodium 80 mg 12/12/17 12:49 12/12/17 13:05 Protonix Iv IVPUSH 12/12/17 12:50 80 mg .BOLUS ONE Administration Thiamine HCl 100 mg 12/12/17 13:00 12/12/17 13:19 Vitamin B-1 IM 12/12/17 13:01 100 mg ONETIME ONE Administration Departure - Departure Time of Disposition: 13:24 Disposition: DC/Tfer to Acute Hospital 02 Condition: Fair Clinical Impression: Anemia, Hypovolemic shock - Discharge Information Referrals: PCP,None [Primary Care Provider] - - My Orders Last 24 Hours: My Active Orders 12/12/17 10:15 PATIENT RETYPE [BBK] Stat RED BLOOD CELLS LP [BBK] Stat TYPE AND SCREEN [BBK] Stat 12/12/17 10:29 UA W/MICROSCOPIC [URIN] Stat 12/12/17 10:39 Transfuse Platelets [COMM] Stat Transfuse Red Blood Cells [COMM] Stat 12/12/17 10:45 Sodium Chloride 0.9% [Normal Saline] 250 ml IV ASDIRECTED 12/12/17 10:54 Blood Culture x2 Reflex Set [OM.PC] Urgent 12/12/17 10:59 CXR [Chest 1V Frontal] [CR] Stat 12/12/17 11:00 Piperacillin/Tazobactam [Zosyn] 3.375 gm Sodium Chloride 0.9% [Normal Saline] 50 ml IV Q6H 12/12/17 11:20 CULTURE BLOOD [BC] Urgent 12/12/17 11:25 CULTURE BLOOD [BC] Urgent 12/12/17 11:35 AMMONIA, PLASMA Stat 12/12/17 12:45 Sodium Chloride 0.9% [Normal Saline] 1,000 ml IV ASDIRECTED 12/12/17 13:00 Sodium Chloride 0.9% [Normal Saline] 1,000 ml IV ASDIRECTED - Assessment/Plan Last 24 Hours: My Active Orders 12/12/17 10:15 PATIENT RETYPE [BBK] Stat RED BLOOD CELLS LP [BBK] Stat TYPE AND SCREEN [BBK] Stat 12/12/17 10:29 UA W/MICROSCOPIC [URIN] Stat 12/12/17 10:39 Transfuse Platelets [COMM] Stat Transfuse Red Blood Cells [COMM] Stat 12/12/17 10:45 Sodium Chloride 0.9% [Normal Saline] 250 ml IV ASDIRECTED 12/12/17 10:54 Blood Culture x2 Reflex Set [OM.PC] Urgent 12/12/17 10:59 CXR [Chest 1V Frontal] [CR] Stat 12/12/17 11:00 Piperacillin/Tazobactam [Zosyn] 3.375 gm Sodium Chloride 0.9% [Normal Saline] 50 ml IV Q6H 12/12/17 11:20 CULTURE BLOOD [BC] Urgent 12/12/17 11:25 CULTURE BLOOD [BC] Urgent 12/12/17 11:35 AMMONIA, PLASMA Stat 12/12/17 12:45 Sodium Chloride 0.9% [Normal Saline] 1,000 ml IV ASDIRECTED 12/12/17 13:00 Sodium Chloride 0.9% [Normal Saline] 1,000 ml IV ASDIRECTED
[2017-12-12] MEDS ORDERED: Sodium Chloride 0.9% 250 ML IV SCH (10:45)
[2017-12-12] MEDS ORDERED: Sodium Chloride 0.9% 1,000 ML IV ONE (10:56)
[2017-12-12] MEDS ORDERED: Piperacillin/Tazobactam 3.375 GM in Sodium Chloride 0.9% 50 ML IV SCH (11:00)
[2017-12-12] MEDS ORDERED: Sodium Chloride 0.9% 1,000 ML IV SCH ×2 (12:45→13:00)
[2017-12-12] MEDS ORDERED: Pantoprazole 40 MG Vial IVPUSH ONE (12:49)
[2017-12-12] MEDS ORDERED: Thiamine 100 MG in Sodium Chloride 0.9% 100 ML IV ONE (12:56)
[2017-12-12] MEDS ORDERED: Thiamine 200 MG/2 ML MDV IM ONE (13:00)
--- NOTE | 2017-12-15 13:22 | CR ---
INDICATION: Chest pain. CHEST: An AP upright portable view of the chest was obtained 12/12/2017 and revealed the heart to be normal in size and shape. The aorta is tortuous with calcification suggested in the arch. Overlying EKG leads are noted. An active infiltrate or effusion was not identified. IMPRESSION: No acute process. MTDD
== END 2017-12-12 13:23 ==
LOC: FB.ED 09:56
DX: R57.1 Hypovolemic shock (principal); D53.9 Nutritional anemia, unspecified; I95.9 Hypotension, unspecified; R74.8 Abnormal levels of other serum enzymes; N39.0 Urinary tract infection, site not specified; D69.6 Thrombocytopenia, unspecified
CPT/HCPCS: 36415; 36430; 71045; 80048; 80076; 81001; 82140; 82272; 83605; 83880; 85025; 85610; 86850; 86900; 86901; 86920; 86922; 87040; 93005; 96361; 96365; 96366; 96372; 96374; 96375; 99285; C9113; G0480; J2543; J3370; J3411; J7030; J7050; P9016

== ENCOUNTER 2018-10-23 19:48 | Emergency (ER) | payer MEDICARE ==
[2018-10-23] MEDS ORDERED: Sodium Chloride 0.9% 10 ML Syringe FLUSH PRN (20:07)
[2018-10-23] MEDS ORDERED: Diphtheria,Pertussis(Acell),Tetanus Vaccine 0.5 ML SDV IM ONE (20:14)
[2018-10-23] MEDS ORDERED: Sodium Chloride 0.9% 1,000 ML IV SCH (20:15)
[2018-10-23] MEDS ORDERED: Sodium Chloride 0.9% 1,000 ML IV ONE (20:51)
--- NOTE | 2018-10-23 20:51 | EDM.PDOC ---
ED HPI GENERAL MEDICAL PROBLEM - General Chief Complaint: General Stated Complaint: fall Time Seen by Provider: 10/23/18 20:15 Source of Information: Reports: EMS, Family (Patient's ex-significant other) History Limitations: Reports: Altered Mental Status (Patient is having visual hallucinations.), Intoxication - History of Present Illness INITIAL COMMENTS - FREE TEXT/NARRATIVE: 73-year-old male who apparently fell at his home at about 2 AM today and was found by his ex-girlfriend this morning on his couch with a lot of blood on the couch and all over the floor around him. He was somewhat confused at that time and weak and unable to get the couch. She reports that he would not allow her to call 911 and she waited with him all day. Apparently they were drinking some alcohol during this time. He continued to be somewhat confused and was unable to get off the couch and finally this evening she called 911 for someone to evaluate him. He presents via ambulance confused and having visual hallucinations. He denies any pain at this point. He is quite disheveled with blood matted in his hair and on his face with ecchymosis on his face. He appears in no respiratory distress. He is disoriented to date and day as well as year. He does rate his pain as a 0/10 but he really cannot give me any history. This is all the history that I can obtain. There are no other associated signs or symptoms. There are no other modifying factors. 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) (Nothing) - Related Data Allergies Allergy/AdvReac Type Severity Reaction Status Date / Time No Known Allergies Allergy Verified 12/12/17 10:11 Home Meds: Home Meds LORazepam [Ativan] 0.5 mg PO Q6H #40 tablet 05/08/17 [Rx] Multivitamins [Tab-A-Ean] 1 tab PO BEDTIME #30 tablet 05/08/17 [Rx] Thiamine [Vitamin B-1] 100 mg PO BEDTIME #30 tab 05/08/17 [Rx] Past Medical History HEENT History: Reports: Impaired Vision, Other (See Below) Other HEENT History: glasses Cardiovascular History: Reports: Hypertension (But not taking his medication) Psychiatric History: Reports: Addiction (Alcoholism), Anxiety, Depression Hematologic History: Reports: Anemia - Infectious Disease History Infectious Disease History: Reports: Chicken Pox, Measles, Mumps - Past Surgical History Musculoskeletal Surgical History: Reports: Shoulder Surgery (Right shoulder) Social & Family History - Family History Family Medical History: Unobtainable Other Cardiac Family History: father Other Oncologic Family History: mother and grandmother - Tobacco Use Smoking Status *Q: Never Smoker Second Hand Smoke Exposure: No - Caffeine Use Caffeine Use: Reports: None Other Caffeine Use: 2 cups a day - Alcohol Use Alcohol Use Frequency: Daily (Heavy alcohol use daily) - Recreational Drug Use Recreational Drug Use: No - Living Situation & Occupation Social History Comment: Lives alone. Recently his girlfriend moved out. ED ROS GENERAL - Review of Systems Review Of Systems: Unable To Obtain (Patient with altered mental status, visual hallucinations and cannot provide this information.) ED EXAM, GENERAL - Physical Exam Exam: See Below Exam Limited By: No Limitations General Appearance: Alert, Moderate Distress, Other (Confused) Eye Exam: Bilateral Eye: EOMI, Normal Inspection, PERRL Ears: Hearing Grossly Normal Nose: Nasal Deformity, Nasal Swelling Throat/Mouth: Normal Voice, No Airway Compromise, Other (Dry mucous membranes. Strong odor of alcohol his breath.) Head: Facial Swelling, Other (Scalp laceration to occiput that is 6.5 cm in length. Left peripheral ecchymosis with no crepitus or deformity. Midface appears stable.) Neck: Normal Inspection, Non-Tender, Other (C-collars been applied) Respiratory/Chest: No Respiratory Distress, Lungs Clear, Normal Breath Sounds, No Accessory Muscle Use, Chest Non-Tender Cardiovascular: Normal Peripheral Pulses, Regular Rate, Rhythm, No JVD Peripheral Pulses: 2+: Radial (L), Radial (R), Dorsalis Pedis (L), Dorsalis Pedis (R) GI/Abdominal: Normal Bowel Sounds, Soft, Non-Tender, No Mass, Other (Scaphoid) Extremities: Normal Range of Motion, Pallor, Other (No bony deformity noted. He does move all 4 extremities.) Neurological: Alert, No Motor/Sensory Deficits, Disoriented, Memory Loss Recent Events Skin Exam: Ecchymosis, Jaundice, Pallor, Petechiae ED GENERAL MEDICAL PROCEDURES - Laceration/Wound Repair Posterior Occipital Head Lac/wound length in cm: 6.5 Appearance: Subcutaneous, Other (No crepitus. No depression.) Anesthetic Type: Other (None used. Patient denied any pain even with outpatient and irrigation of the wound) Saline irrigation (cc's): 800 Exploration/Debridement/Repair: Wound Explored Closed with: Louie (4 louie placed. Patient tolerated this well. There were no apparent Caucasians.) EKG INTERPRETATION EKG Date: 10/23/18 Time: 20:35 Rhythm: NSR [place]: Normal P-Wave: Present QRS: Normal ST-T: Normal QT: Prolonged Course - Vital Signs Last Recorded V/S: Last Vital Signs Temp 36.3 C 10/23/18 19:50 Pulse 97 10/23/18 19:50 Resp 16 10/23/18 19:50 BP 142/47 H 10/23/18 19:50 Pulse Ox 97 10/23/18 19:50 - Orders/Labs/Meds Orders: Active Orders 24 hr Category Date Time Status EKG Documentation Completion [RC] ASDIRECTED Care 10/23/18 20:17 Active Initiate/Renew Non-Violent Restraints (All Ages) Q24H Care 10/23/18 20:15 Ordered Insert Sanchez Catheter [Insert Urinary Catheter] [OM.PC] Care 10/23/18 21:00 Ordered Q24H Nrsg Assess Restraint Init/Mon [RC] Q1H Care 10/23/18 20:10 Active Nrsg NV Restr Reassessment [RC] Q24H Care 10/24/18 20:10 Active Urinary Catheter Assessment [RC] QSHIFT Care 10/23/18 20:47 Active Vaccines to be Administered [RC] PER UNIT ROUTINE Care 10/23/18 20:14 Active Abdomen Pelvis wo Cont [CT] Stat Exams 10/23/18 20:15 Taken Cervical Spine wo Cont [CT] Stat Exams 10/23/18 20:07 Taken Chest 1V Frontal [CR] Stat Exams 10/23/18 20:07 Taken Head wo Cont [CT] Stat Exams 10/23/18 20:07 Taken Sodium Chloride 0.9% [Normal Saline] 1,000 ml Med 10/23/18 20:15 Active IV ASDIRECTED Sodium Chloride 0.9% [Saline Flush] Med 10/23/18 20:07 Active 10 ml FLUSH ASDIRECTED PRN Peripheral IV Insertion Adult [OM.PC] Routine Oth 10/23/18 20:07 Ordered EKG 12 Lead [EK] Routine Ther 10/23/18 20:16 Ordered Medication Orders Sodium Chloride (Normal Saline) 1,000 mls @ 150 mls/hr IV ASDIRECTED LIN Last Admin: 10/23/18 21:56 Dose: 150 mls/hr Sodium Chloride (Saline Flush) 10 ml FLUSH ASDIRECTED PRN PRN Reason: Keep Vein Open Labs: Laboratory Tests 10/23/18 10/23/18 10/23/18 Range/Units 20:30 20:30 20:30 WBC 11.7 (4.5-12.0) X10-3/uL RBC 1.80 L (4.30-5.75) x10(6)uL Hgb 6.7 L* (13.5-17.8) g/dL Hct 20.2 L* (30.0-51.3) % MCV 111.9 H (80-96) fL MCH 37.1 H (27.7-33.6) pg MCHC 33.2 (32.2-35.4) g/dL RDW 16.1 H (11.5-15.5) % Plt Count 38 L (125-369) X10(3)uL MPV 9.0 (7.4-10.4) fL Neut % (Auto) 82.1 H (46-82) % Lymph % (Auto) 7.0 L (13-37) % [place] % (Auto) 10.1 (4-12) % Eos % (Auto) 1 (1.0-5.0) % Baso % (Auto) 0 (0-2) % Neut # (Auto) 9.5 H (1.6-8.3) # Lymph # (Auto) 0.8 (0.6-5.0) # [place] # (Auto) 1.2 (0.0-1.3) # Eos # (Auto) 0.1 (0.0-0.8) # Baso # (Auto) 0.0 (0.0-0.2) # PT 18.3 H (8.7-11.1) INR 1.90 H (0.89-1.13) APTT 30.7 (24.4-33.2) SECONDS Sodium 139 (135-145) mmol/L Potassium 5.1 D (3.5-5.3) mmol/L Chloride 102 D (100-110) mmol/L Carbon Dioxide 11 L* (21-32) mmol/L BUN 18 (7-18) mg/dL Creatinine 2.0 H* (0.70-1.30) mg/dL Est Cr Clr Drug Dosing 31.52 mL/min Estimated GFR (MDRD) 33 L (>60) BUN/Creatinine Ratio 9.0 (9-20) Glucose 61 L (80-116) mg/dL Calcium 8.5 L (8.6-10.2) mg/dL Magnesium (1.8-2.5) mg/dL Total Bilirubin 3.5 H (0.1-1.3) mg/dL AST 110 H D (5-25) IU/L ALT 25 D (12-36) U/L Alkaline Phosphatase 109 (56-112) IU/L Creatine Kinase (60-160) IU/L Troponin I (<0.017-0.056) ng/mL Total Protein 6.0 (6.0-8.0) g/dL Albumin 1.9 L (3.2-4.6) g/dL Globulin 4.1 g/dL Albumin/Globulin Ratio 0.5 Amylase (25-115) U/L Urine Color (YELLOW) Urine Appearance (CLEAR) Urine pH (5.0-6.5) Ur Specific [place] (1.010-1.025) Urine Protein (NEGATIVE) mg/dL Urine Glucose (UA) (NORMAL) mg/dL Urine Ketones (NEGATIVE) mg/dL Urine Occult Blood (NEGATIVE) Urine Nitrite (NEGATIVE) Urine Bilirubin (NEGATIVE) Urine Urobilinogen (NEGATIVE) mg/dL Ur Leukocyte Esterase (NEGATIVE) Urine RBC (0-5) Urine WBC (0-5) Ur Squamous Epith Cells (NS,R,O) Urine Bacteria (NS) Hyaline Casts (NS) Urine Opiates Screen (NEGATIVE) Ur Oxycodone Screen (NEGATIVE) Ur Propoxyphene Screen (NEGATIVE) Ur Barbituates Screen (NEGATIVE) Ur Tricyclics Screen (NEGATIVE) Ur Phencyclidine Scrn (NEGATIVE) Ur Amphetamine Screen (NEGATIVE) Urine MDMA Screen (NEGATIVE) U Benzodiazepines Scrn (NEGATIVE) U Cocaine Metab Screen (NEGATIVE) U Marijuana (THC) Screen (NEGATIVE) Ethyl Alcohol (<0.03) % 10/23/18 10/23/18 10/23/18 Range/Units 20:30 20:30 20:30 WBC (4.5-12.0) X10-3/uL RBC (4.30-5.75) x10(6)uL Hgb (13.5-17.8) g/dL Hct (30.0-51.3) % MCV (80-96) fL MCH (27.7-33.6) pg MCHC (32.2-35.4) g/dL RDW (11.5-15.5) % Plt Count (125-369) X10(3)uL MPV (7.4-10.4) fL Neut % (Auto) (46-82) % Lymph % (Auto) (13-37) % [place] % (Auto) (4-12) % Eos % (Auto) (1.0-5.0) % Baso % (Auto) (0-2) % Neut # (Auto) (1.6-8.3) # Lymph # (Auto) (0.6-5.0) # [place] # (Auto) (0.0-1.3) # Eos # (Auto) (0.0-0.8) # Baso # (Auto) (0.0-0.2) # PT (8.7-11.1) INR (0.89-1.13) APTT (24.4-33.2) SECONDS Sodium (135-145) mmol/L Potassium (3.5-5.3) mmol/L Chloride (100-110) mmol/L Carbon Dioxide (21-32) mmol/L BUN (7-18) mg/dL Creatinine (0.70-1.30) mg/dL Est Cr Clr Drug Dosing mL/min Estimated GFR (MDRD) (>60) BUN/Creatinine Ratio (9-20) Glucose (80-116) mg/dL Calcium (8.6-10.2) mg/dL Magnesium 1.4 L (1.8-2.5) mg/dL Total Bilirubin (0.1-1.3) mg/dL AST (5-25) IU/L ALT (12-36) U/L Alkaline Phosphatase (56-112) IU/L Creatine Kinase 2055 H* (60-160) IU/L Troponin I (<0.017-0.056) ng/mL Total Protein (6.0-8.0) g/dL Albumin (3.2-4.6) g/dL Globulin g/dL Albumin/Globulin Ratio Amylase 26 (25-115) U/L Urine Color (YELLOW) Urine Appearance (CLEAR) Urine pH (5.0-6.5) Ur Specific [place] (1.010-1.025) Urine Protein (NEGATIVE) mg/dL Urine Glucose (UA) (NORMAL) mg/dL Urine Ketones (NEGATIVE) mg/dL Urine Occult Blood (NEGATIVE) Urine Nitrite (NEGATIVE) Urine Bilirubin (NEGATIVE) Urine Urobilinogen (NEGATIVE) mg/dL Ur Leukocyte Esterase (NEGATIVE) Urine RBC (0-5) Urine WBC (0-5) Ur Squamous Epith Cells (NS,R,O) Urine Bacteria (NS) Hyaline Casts (NS) Urine Opiates Screen (NEGATIVE) Ur Oxycodone Screen (NEGATIVE) Ur Propoxyphene Screen (NEGATIVE) Ur Barbituates Screen (NEGATIVE) Ur Tricyclics Screen (NEGATIVE) Ur Phencyclidine Scrn (NEGATIVE) Ur Amphetamine Screen (NEGATIVE) Urine MDMA Screen (NEGATIVE) U Benzodiazepines Scrn (NEGATIVE) U Cocaine Metab Screen (NEGATIVE) U Marijuana (THC) Screen (NEGATIVE) Ethyl Alcohol 0.11 H (<0.03) % 10/23/18 10/23/18 10/23/18 Range/Units 20:30 20:53 20:53 WBC (4.5-12.0) X10-3/uL RBC (4.30-5.75) x10(6)uL Hgb (13.5-17.8) g/dL Hct (30.0-51.3) % MCV (80-96) fL MCH (27.7-33.6) pg MCHC (32.2-35.4) g/dL RDW (11.5-15.5) % Plt Count (125-369) X10(3)uL MPV (7.4-10.4) fL Neut % (Auto) (46-82) % Lymph % (Auto) (13-37) % [place] % (Auto) (4-12) % Eos % (Auto) (1.0-5.0) % Baso % (Auto) (0-2) % Neut # (Auto) (1.6-8.3) # Lymph # (Auto) (0.6-5.0) # [place] # (Auto) (0.0-1.3) # Eos # (Auto) (0.0-0.8) # Baso # (Auto) (0.0-0.2) # PT (8.7-11.1) INR (0.89-1.13) APTT (24.4-33.2) SECONDS Sodium (135-145) mmol/L Potassium (3.5-5.3) mmol/L Chloride (100-110) mmol/L Carbon Dioxide (21-32) mmol/L BUN (7-18) mg/dL Creatinine (0.70-1.30) mg/dL Est Cr Clr Drug Dosing mL/min Estimated GFR (MDRD) (>60) BUN/Creatinine Ratio (9-20) Glucose (80-116) mg/dL Calcium (8.6-10.2) mg/dL Magnesium (1.8-2.5) mg/dL Total Bilirubin (0.1-1.3) mg/dL AST (5-25) IU/L ALT (12-36) U/L Alkaline Phosphatase (56-112) IU/L Creatine Kinase (60-160) IU/L Troponin I 0.136 H* (<0.017-0.056) ng/mL Total Protein (6.0-8.0) g/dL Albumin (3.2-4.6) g/dL Globulin g/dL Albumin/Globulin Ratio Amylase (25-115) U/L Urine Color [place] (YELLOW) Urine Appearance Clear (CLEAR) Urine pH 5.0 (5.0-6.5) Ur Specific [place] 1.020 (1.010-1.025) Urine Protein Negative (NEGATIVE) mg/dL Urine Glucose (UA) Normal (NORMAL) mg/dL Urine Ketones Negative (NEGATIVE) mg/dL Urine Occult Blood Large H (NEGATIVE) Urine Nitrite Negative (NEGATIVE) Urine Bilirubin Small H (NEGATIVE) Urine Urobilinogen 4 H (NEGATIVE) mg/dL Ur Leukocyte Esterase Negative (NEGATIVE) Urine RBC 10-20 H (0-5) Urine WBC 0-5 (0-5) Ur Squamous Epith Cells Few H (NS,R,O) Urine Bacteria Few H (NS) Hyaline Casts Few H (NS) Urine Opiates Screen Negative (NEGATIVE) Ur Oxycodone Screen Negative (NEGATIVE) Ur Propoxyphene Screen Negative (NEGATIVE) Ur Barbituates Screen Negative (NEGATIVE) Ur Tricyclics Screen Negative (NEGATIVE) Ur Phencyclidine Scrn Negative (NEGATIVE) Ur Amphetamine Screen Negative (NEGATIVE) Urine MDMA Screen Negative (NEGATIVE) U Benzodiazepines Scrn Negative (NEGATIVE) U Cocaine Metab Screen Negative (NEGATIVE) U Marijuana (THC) Screen Negative (NEGATIVE) Ethyl Alcohol (<0.03) % Meds: Medications Generic Name Dose Route Start Last Admin Trade Name Freq PRN Reason Stop Dose Admin Sodium Chloride 1,000 mls @ 150 mls/hr 10/23/18 20:15 10/23/18 21:56 Normal Saline IV 150 mls/hr ASDIRECTED LIN Administration Sodium Chloride 10 ml 10/23/18 20:07 Saline Flush FLUSH ASDIRECTED PRN Keep Vein Open Discontinued Medications Generic Name Dose Route Start Last Admin Trade Name Freq PRN Reason Stop Dose Admin Dextrose/Water 10 ml 10/23/18 21:41 10/23/18 22:00 Dextrose 25% In Water IVPUSH 10/23/18 21:42 Not Given ONETIME ONE Dextrose/Water 50 ml 10/23/18 21:59 Dextrose 50% In Water IVPUSH 10/23/18 22:00 ONETIME ONE Diphtheria/Tetanus/Acell Pertussis 0.5 ml 10/23/18 20:14 10/23/18 20:41 Adacel IM 10/23/18 20:15 0.5 ml .ONCE ONE Administration Sodium Chloride 1,000 mls @ 999 mls/hr 10/23/18 20:51 10/23/18 20:57 Normal Saline IV 10/23/18 21:51 999 mls/hr .BOLUS ONE Administration - Radiology Interpretation Free Text/Narrative:: CT of head showed no acute abnormality besides soft tissue swelling per the radiologist. CT scan of cervical spine showed no acute abnormality per the radiologist Portable chest x-ray showed no acute disease. CT scan of abdomen and pelvis without IV contrast showed no acute intra- abdominal pathology per the radiologist. - Re-Assessments/Exams Free Text/Narrative Re-Assessment/Exam: 10/23/18 21:30: Patient with your anemia with hemoglobin of 6.7 he also has thrombocytopenia with platelet count of 38,000. He has a bicarbonate of 11. He has elevated bilirubin and multiple electrolyte abnormalities. His blood alcohol is 0.11. His troponin is 0.123. His EKG showed return of injury. The CT scan of his head and cervical spine were negative. The chest x-ray was negative. The CT scan of his abdomen and pelvis reading is negative. This gentleman appears to have had an acute blood loss anemia related to his trauma and now has what appears to be developing DTs. He also has a metabolic acidosis related to his blood loss with hypovolemia. He will need specially care which is not available at [facility]. He will need ICU care. The patient is unable to give informed consent for transfer secondary to his altered mental status. However, he is followed through [facility] in [place] and I will call them. 10/23/18 22:00 ([facility] call was very busy apparently and it took 20 minutes to be able to talk to a physician): I discussed patient's case with Dr. Mccracken, emergency physician at [facility] in [place], and he has agreed to accept the patient in transfer. The patient be transferred by ambulance to [facility] in [place] emergency department. The patient at this point has a pulse rate in the low 100s, a blood pressure in the 105 systolic range and has been Y operative as long as he has nonviolent restraints in place. Sanchez catheter is in place and draining some urine. The patient is having ongoing fluid resuscitation with normal saline. 10/23/18 22:26: EMS is here and will be transported the patient now. Patient has remained stable throughout his emergency department stay. Departure - Departure Time of Disposition: 22:27 Disposition: DC/Tfer to Acute Hospital 02 Condition: Critical Clinical Impression: Acute blood loss anemia, Metabolic acidosis, Hypovolemia, Alcoholic delirium, Elevated troponin, Liver disease due to alcohol Occipital scalp laceration Qualifiers: Encounter type: initial encounter Qualified Code(s): S01.01XA - Laceration without foreign body of scalp, initial encounter Facial contusion Qualifiers: Encounter type: initial encounter Qualified Code(s): S00.83XA - Contusion of other part of head, initial encounter Fall Qualifiers: Encounter type: initial encounter Qualified Code(s): W19.XXXA - Unspecified fall, initial encounter - Discharge Information Referrals: PCP,None [Primary Care Provider] - Forms: ED Department Discharge - My Orders Last 24 Hours: My Active Orders 10/23/18 20:07 Cervical Spine wo Cont [CT] Stat Chest 1V Frontal [CR] Stat Head wo Cont [CT] Stat Sodium Chloride 0.9% [Saline Flush] 10 ml FLUSH ASDIRECTED PRN Peripheral IV Insertion Adult [OM.PC] Routine 10/23/18 20:10 Nrsg Assess Restraint Init/Mon [RC] Q1H 10/23/18 20:14 Vaccines to be Administered [RC] PER UNIT ROUTINE 10/23/18 20:15 Initiate/Renew Non-Violent Restraints (All Ages) Q24H Abdomen Pelvis wo Cont [CT] Stat Sodium Chloride 0.9% [Normal Saline] 1,000 ml IV ASDIRECTED 10/23/18 20:16 EKG 12 Lead [EK] Routine 10/23/18 20:17 EKG Documentation Completion [RC] ASDIRECTED 10/23/18 20:47 Urinary Catheter Assessment [RC] QSHIFT 10/23/18 21:00 Insert Sanchez Catheter [Insert Urinary Catheter] [OM.PC] Q24H 10/24/18 20:10 Nrsg NV Restr Reassessment [RC] Q24H - Assessment/Plan Last 24 Hours: My Active Orders 10/23/18 20:07 Cervical Spine wo Cont [CT] Stat Chest 1V Frontal [CR] Stat Head wo Cont [CT] Stat Sodium Chloride 0.9% [Saline Flush] 10 ml FLUSH ASDIRECTED PRN Peripheral IV Insertion Adult [OM.PC] Routine 10/23/18 20:10 Nrsg Assess Restraint Init/Mon [RC] Q1H 10/23/18 20:14 Vaccines to be Administered [RC] PER UNIT ROUTINE 10/23/18 20:15 Initiate/Renew Non-Violent Restraints (All Ages) Q24H Abdomen Pelvis wo Cont [CT] Stat Sodium Chloride 0.9% [Normal Saline] 1,000 ml IV ASDIRECTED 10/23/18 20:16 EKG 12 Lead [EK] Routine 10/23/18 20:17 EKG Documentation Completion [RC] ASDIRECTED 10/23/18 20:47 Urinary Catheter Assessment [RC] QSHIFT 10/23/18 21:00 Insert Sanchez Catheter [Insert Urinary Catheter] [OM.PC] Q24H 10/24/18 20:10 Nrsg NV Restr Reassessment [RC] Q24H
[2018-10-23] MEDS ORDERED: 25% Dextrose in Water 10 ML Syringe IVPUSH ONE (21:41)
[2018-10-23] MEDS ORDERED: 50% Dextrose in Water 50 ML Syringe IVPUSH ONE (21:59)
== END 2018-10-23 22:36 ==
LOC: FB.ED 19:48
DX: S01.01XA Laceration without foreign body of scalp, initial encounter (principal); D62 Acute posthemorrhagic anemia; E87.2 Acidosis; E86.1 Hypovolemia; F10.231 Alcohol dependence with withdrawal delirium; Y90.5 Blood alcohol level of 100-119 mg/100 ml; K70.9 Alcoholic liver disease, unspecified; R79.89 Other specified abnormal findings of blood chemistry; Z23 Encounter for immunization; W19.XXXA Unspecified fall, initial encounter
CPT/HCPCS: 12002; 36415; 51702; 70450; 71045; 72125; 74176; 80053; 80305; 81001; 82150; 82550; 83735; 84484; 85025; 85610; 85730; 90471; 90715; 93005; 96361; 96374; 99285; A4216; G0480; J7030; 93010